=== PATIENT | female | born 1975 | race Caucasian/White ===

== ENCOUNTER → 2024-06-24 | Outpatient (CLI) | payer BC | LOC: RAD 10:30 | DX: M79.645 Pain in left finger(s) (principal); W23.0XXA Caught, crushed, jammed, or pinched between moving objects, initial encounter ==

== ENCOUNTER → 2024-08-21 | Outpatient (CLI) | payer BC ==
[2024-08-21 10:05] LABS: BASO # 0.02 K/mm3 (0.02-0.10); EOS # 0.13 K/mm3 (0.04-0.40); HEMATOCRIT 44.7 % (37.0-47.0); HEMOGLOBIN 14.7 g/dL (12.5-16.0); LYMPH# 1.83 K/mm3 (1.50-4.00); MEAN CELL VOLUME 89 fl (78-100); MEAN CORPUSCULAR HEMOGLOBIN 29 pg (27-31); MEAN CORPUSCULAR HGB CONC 33 g/dL (33-37); MEAN PLATELET VOLUME 8.7 fl (7.4-10.4); MONO # 0.43 K/mm3 (0.20-0.80); NEU # 3.97 K/mm3 (1.40-6.50); PLATELET COUNT 339 K/mm3 (130-400); RED BLOOD COUNT 5.02 M/mm3 (4.10-5.30); RED CELL DISTRIBUTION WIDTH 11.8 % (11.5-14.5); WHITE BLOOD COUNT 6.4 K/mm3 (4.8-10.8)
[2024-08-21 10:12] LABS: ALBUMIN 4.5 g/dL (3.5-5.0)
[2024-08-21 10:13] LABS: CALCIUM 9.3 mg/dL (8.3-10.5)
[2024-08-21 10:14] LABS: TOTAL PROTEIN 7.6 g/dL (6.4-8.3)
[2024-08-21 10:16] LABS: TOTAL BILIRUBIN 0.6 mg/dL (0.2-1.2)
[2024-08-21 22:59] LABS: FOLLICLE STIMULATING HORMONE 14.3 mIU/mL (()); LUTENIZING HORMONE 4.2 mIU/mL (())
[2024-08-21 23:00] LABS: PROGESTERONE 0.1 ng/mL (())
== END ==
LOC: LAB 09:42
PROVIDERS: Family Medicine
DX: Z00.00 Encounter for general adult medical examination without abnormal findings (principal); N91.1 Secondary amenorrhea; E78.5 Hyperlipidemia, unspecified